=== PATIENT | male | born 1970 | race African-American/Black ===

== ENCOUNTER 2020-02-05 16:01 | Emergency (ER) | payer BC, OTHER ==
[2020-02-06 14:41] LABS: SARS-CoV-2 MS2 Positive; SARS-CoV-2 N Gene Negative; SARS-CoV-2 S Gene Negative; SARS-CoV-2 orf1ab Negative
== END 2020-02-05 16:37 | disposition home or self-care (01) ==
LOC: ERS 16:01
DX: Z20.828 Contact with and (suspected) exposure to other viral communicable diseases (principal); E11.9 Type 2 diabetes mellitus without complications; I10 Essential (primary) hypertension
CPT/HCPCS: 87635; 99283; U0003